=== PATIENT | female | born 1980 | race Two or more races ===

== ENCOUNTER 2023-10-28 11:07 | Inpatient (IN) | payer MEDICAID, OTHER ==
[~2023-10-28] VITALS: Ht 162.6 cm; Wt 82.9 kg
[2023-10-28 12:05] LABS: Basophils # (auto) 0 10 ^3/uL (0-0.2); Basophils % (auto) 0.6 % (0.0-2.0); Eosinophils # (auto) 0.1 10 ^3/uL (0-0.8); Eosinophils % (auto) 2.2 % (0.0-7.0); Hemoglobin 10.5 g/dL (12.2-16.2); Lymphocytes # (auto) 2.1 10 ^3/uL (0.4-5.4); Monocytes # (auto) 0.5 10 ^3/uL (0-1.3)
[2023-10-28 12:06] LABS: Hematocrit 33.8 % (36.0-46.0); Lymphocytes % (auto) 39.7 % (10.0-50.0); Mean Corpuscular Hemoglobin 22.9 pg (28.0-32.0); Mean Corpuscular Volume 73.8 fL (80.0-100.0); Monocytes % (auto) 9.2 % (0.0-12.0); Neutrophils # (auto) 2.5 10 ^3/uL (1.6-8.6); Neutrophils % (auto) 48.3 % (37.0-80.0); Red Blood Cells 4.59 10^6/uL (4.0-5.20); Red Cell Distribution Width 18.9 % (11.8-14.3); White Blood Cell 5.3 10^3/uL (4.4-10.8)
[2023-10-28 12:29] LABS: Alanine Aminotransferase 11 U/L (7-40); Albumin 4.5 g/dL (3.2-4.8); Alkaline Phosphatase 49 U/L (46-116); Anion Gap 5 (5-15); Aspartate Aminotransferase 12 U/L (13-40); BUN/Creatinine Ratio 9.1 (10.0-20.0); Blood Urea Nitrogen 6 mg/dL (9-23); Calcium 9.3 mg/dL (8.7-10.4); Carbon Dioxide 27 mmol/L (20-30); Chloride 108 mmol/L (98-107); Glucose 93 mg/dL (74-106); Potassium 3.9 mmol/L (3.5-5.1); Sodium 140 mmol/L (136-145)
[2023-10-28 12:30] LABS: Bilirubin, Total 0.3 mg/dL (0.2-1.0)
[2023-10-28 12:56] LABS: Urine Bacteria FEW /hpf (None Seen); Urine Blood Negative /uL (Negative); Urine Clarity Clear (Clear); Urine Color Light-Yellow (Yellow); Urine Protein, UAD Negative (Negative); Urine Specific Gravity 1.003 (1.001-1.035); Urine Urobilinogen Normal (Negative); Urine WBC <1 /hpf (0 - 5)
[2023-10-28 13:25] LABS: Lipase 36 U/L (12-53)
[2023-10-28 13:29] VITALS: PULSE 71; RESP 18; O2SAT 100
[2023-10-28] MEDS: SODIUM CHLORIDE 0.9% 1,000 ML IV ONE (15:45)
[2023-10-28] MEDS ORDERED: ACETAMINOPHEN 325 MG TAB PO PRN (15:45)
[2023-10-28] MEDS: SODIUM CHLORIDE 0.9% 1,000 ML IV SCH (15:45)
[2023-10-28] MEDS: PANTOPRAZOLE 40 MG TAB PO ONE (16:36)
[2023-10-28] MEDS: KETOROLAC TROMETH 30 MG/ML 1ML VIAL IV ONE (16:36)
[2023-10-28] MEDS: DOCUSATE SOD 100 MG CAP PO ONE (16:36)
[2023-10-28] MEDS: LACTULOSE 20Gm/30ML SOLN PO ONE (16:36)
[2023-10-28 16:39] LABS: Triglycerides 66 mg/dL (< 150)
[2023-10-28 16:40] LABS: LDL Cholesterol 109 mg/dL (< 100)
[2023-10-28 16:41] LABS: Cholesterol 165 mg/dL (< 200); HDL Cholesterol 48 mg/dL (40-59)
[2023-10-28] MEDS: SENNA 8.6 MG TAB PO ONE (16:53)
[2023-10-28 17:38] LABS: Anisocytosis Slight; Giant Platelets Few; Hypochromia Slight; Macrocytosis Slight; Ovalocytes FEW; Platelet Estimate Adequate
[2023-10-28 22:47] VITALS: PULSE 87; RESP 18; O2SAT 98
[2023-10-29] VITALS (7 sets, daily range): BP systolic 118–135; BP diastolic 72–87; PULSE 58–89; RESP 16–20; TEMP 98–99.2; O2SAT 96–100
[2023-10-29] MEDS: PANTOPRAZOLE 40 MG TAB PO SCH (05:44)
[2023-10-29 05:54] LABS: Basophils # (auto) 0 10 ^3/uL (0-0.2); Eosinophils # (auto) 0.1 10 ^3/uL (0-0.8); Eosinophils % (auto) 1.6 % (0.0-7.0); Hemoglobin 9.4 g/dL (12.2-16.2); Lymphocytes # (auto) 2.4 10 ^3/uL (0.4-5.4); Mean Corpuscular Hemoglobin 23.4 pg (28.0-32.0); Monocytes # (auto) 0.6 10 ^3/uL (0-1.3)
[2023-10-29 06:03] LABS: Basophils % (auto) 0.5 % (0.0-2.0); Hematocrit 29.8 % (36.0-46.0); Lymphocytes % (auto) 37.3 % (10.0-50.0); Mean Corpuscular Hgb Conc. 31.7 g/dL (32.0-36.0); Monocytes % (auto) 9.7 % (0.0-12.0); Neutrophils # (auto) 3.3 10 ^3/uL (1.6-8.6); Neutrophils % (auto) 50.9 % (37.0-80.0); Red Blood Cells 4.03 10^6/uL (4.0-5.20); Red Cell Distribution Width 18.3 % (11.8-14.3); White Blood Cell 6.5 10^3/uL (4.4-10.8)
[2023-10-29 06:07] LABS: Alanine Aminotransferase 11 U/L (7-40); Albumin 3.6 g/dL (3.2-4.8); Alkaline Phosphatase 37 U/L (46-116); Anion Gap 5 (5-15); Aspartate Aminotransferase 12 U/L (13-40); BUN/Creatinine Ratio 10.3 (10.0-20.0); Blood Urea Nitrogen 6 mg/dL (9-23); Calcium 8.5 mg/dL (8.7-10.4); Carbon Dioxide 27 mmol/L (20-30); Chloride 111 mmol/L (98-107); Glucose 89 mg/dL (74-106); Potassium 3.7 mmol/L (3.5-5.1); Sodium 143 mmol/L (136-145)
[2023-10-29 06:08] LABS: Bilirubin, Total 0.4 mg/dL (0.2-1.0); Total Protein 5.9 g/dL (5.7-8.2)
[2023-10-29] MEDS ORDERED: DOCUSATE SOD 100 MG CAP PO PRN (10:00)
[2023-10-29] MEDS: LACTULOSE 20Gm/30ML SOLN PO PRN (10:55)
[2023-10-29] MEDS: FLEET ENEMA(ADULT) 135 ML PR ONE (17:06)
[2023-10-29] MEDS: KETOROLAC TROMETH 30 MG/ML 1ML VIAL IV PRN (17:10)
[2023-10-29] MEDS: DICYCLOMINE HCL 10 MG CAP PO ONE (17:10)
[2023-10-29 18:20] LABS: % Iron Saturation 11.3 % (15-50)
[2023-10-29] MEDS: SENNA 8.6 MG TAB PO SCH (22:07)
[2023-10-30 04:53] VITALS: BP 122/82; PULSE 68; RESP 18; TEMP 98.7; O2SAT 99
[2023-10-30 08:00] VITALS: PULSE 71; RESP 18; O2SAT 100
[2023-10-30 08:05] VITALS: BP 110/78; PULSE 71; RESP 18; TEMP 98.6; O2SAT 100
[2023-10-30 10:15] LABS: Basophils # (auto) 0 10 ^3/uL (0-0.2); Eosinophils # (auto) 0.1 10 ^3/uL (0-0.8); Hematocrit 33.5 % (36.0-46.0); Monocytes # (auto) 0.6 10 ^3/uL (0-1.3); Neutrophils # (auto) 3.3 10 ^3/uL (1.6-8.6); Nucleated Red Blood Cells % 0.1 %
[2023-10-30 10:18] LABS: Basophils % (auto) 0.6 % (0.0-2.0); Eosinophils % (auto) 2.1 % (0.0-7.0); Hemoglobin 10.5 g/dL (12.2-16.2); Lymphocytes # (auto) 2.4 10 ^3/uL (0.4-5.4); Lymphocytes % (auto) 36.7 % (10.0-50.0); Mean Corpuscular Hemoglobin 23.3 pg (28.0-32.0); Mean Corpuscular Hgb Conc. 31.4 g/dL (32.0-36.0); Mean Corpuscular Volume 74.3 fL (80.0-100.0); Monocytes % (auto) 9.5 % (0.0-12.0); Neutrophils % (auto) 51.1 % (37.0-80.0); Red Blood Cells 4.51 10^6/uL (4.0-5.20); Red Cell Distribution Width 18.9 % (11.8-14.3); White Blood Cell 6.4 10^3/uL (4.4-10.8)
[2023-10-30 12:10] VITALS: BP 123/83; PULSE 61; RESP 17; TEMP 99.7; O2SAT 98
[2023-10-30] MEDS: POLYETHYLENE GLYCOL 17 GM PWDR PO ONE (12:59)
[2023-10-30 16:00] VITALS: BP 115/72; PULSE 63; RESP 17; TEMP 97.9; O2SAT 99
[2023-10-30] MEDS: DOCUSATE SOD 100 MG CAP PO ONE (19:48)
[2023-10-30] MEDS: PANTOPRAZOLE 40 MG/10 ML VIAL INJ IV ONE (19:48)
[2023-10-30 21:00] VITALS: BP 103/67; PULSE 74; RESP 17; TEMP 98.1; O2SAT 100
[2023-10-30] MEDS: DOCUSATE SOD 100 MG CAP PO SCH (21:33)
[2023-10-31 05:00] VITALS: BP 104/65; PULSE 67; RESP 18; TEMP 97.8; O2SAT 99
[2023-10-31] MEDS: LACTULOSE 20Gm/30ML SOLN PO SCH (07:00)
[2023-10-31 08:00] VITALS: BP 117/76; PULSE 61; RESP 18; TEMP 98; O2SAT 98
[2023-10-31 08:59] LABS: Chloride 107 mmol/L (98-107); Potassium 3.7 mmol/L (3.5-5.1); Sodium 142 mmol/L (136-145)
[2023-10-31 09:00] LABS: Anion Gap 6 (5-15); Carbon Dioxide 29 mmol/L (20-30)
[2023-10-31 09:01] LABS: Calcium 8.9 mg/dL (8.7-10.4)
[2023-10-31 09:05] LABS: BUN/Creatinine Ratio 10.1 (10.0-20.0); Blood Urea Nitrogen 7 mg/dL (9-23); Glucose 85 mg/dL (74-106)
[2023-10-31] MEDS: PANTOPRAZOLE 40 MG/10 ML VIAL INJ IV SCH (09:16)
[2023-10-31] MEDS: POLYETHYLENE GLYCOL 17 GM PWDR PO SCH (11:01)
[2023-10-31 11:37] LABS: Basophils # (auto) 0 10 ^3/uL (0-0.2); Eosinophils # (auto) 0.1 10 ^3/uL (0-0.8); Hemoglobin 10.9 g/dL (12.2-16.2); Mean Corpuscular Hemoglobin 23.5 pg (28.0-32.0); White Blood Cell 7.3 10^3/uL (4.4-10.8)
[2023-10-31 11:38] LABS: Basophils % (auto) 0.6 % (0.0-2.0); Hematocrit 34.5 % (36.0-46.0); Lymphocytes # (auto) 2.5 10 ^3/uL (0.4-5.4); Lymphocytes % (auto) 34.3 % (10.0-50.0); Mean Corpuscular Hgb Conc. 31.7 g/dL (32.0-36.0); Mean Corpuscular Volume 74.1 fL (80.0-100.0); Monocytes # (auto) 0.7 10 ^3/uL (0-1.3); Monocytes % (auto) 10.3 % (0.0-12.0); Neutrophils # (auto) 3.9 10 ^3/uL (1.6-8.6); Neutrophils % (auto) 53.8 % (37.0-80.0); Nucleated Red Blood Cells % 0.2 %; Red Blood Cells 4.65 10^6/uL (4.0-5.20); Red Cell Distribution Width 18.9 % (11.8-14.3)
[2023-10-31 12:00] VITALS: BP 134/87; PULSE 72; RESP 18; TEMP 98.3; O2SAT 100
[2023-10-31] MEDS ORDERED: POLY1POW50 PO (14:09)
[2023-10-31] MEDS ORDERED: NAPR-957 PO (14:09)
[2023-10-31] MEDS ORDERED: DOCU-94 PO (14:09)
[2023-10-31 16:05] VITALS: BP 109/64; PULSE 65; RESP 18; TEMP 98.1; O2SAT 98
[2023-10-31 17:03] VITALS: BP 139/87; PULSE 72; RESP 18; TEMP 98.3; O2SAT 100
== END 2023-10-31 18:07 | disposition home or self-care (01) | DRG 243 ==
LOC: ER 11:07 → OVERFLOW 15:36 → WEST WING 23:08
PROVIDERS: ADMIT Internal Medicine; ATTEND Internal Medicine
DX: K21.9 Gastro-esophageal reflux disease without esophagitis (principal); D50.9 Iron deficiency anemia, unspecified; K64.9 Unspecified hemorrhoids; K59.04 Chronic idiopathic constipation; E66.01 Morbid (severe) obesity due to excess calories; N83.202 Unspecified ovarian cyst, left side; N83.201 Unspecified ovarian cyst, right side; Z98.891 History of uterine scar from previous surgery; Z82.49 Family history of ischemic heart disease and other diseases of the circulatory system; Z68.31 Body mass index [BMI] 31.0-31.9, adult
CPT/HCPCS: 36415; 74176; 74177; 76856; 80048; 80053; 80061; 81001; 82270; 82728; 83540; 83550; 83690; 84443; 84702; 85025; G0378; J1885; J2470